=== PATIENT | female | born 1935 | race American Indian/Alaskan Native ===

== ENCOUNTER 2018-07-07 11:13 | Emergency (ER) | payer MEDICARE, MEDICAID ==
[2018-07-07 11:38] VITALS: BP 154/60; RESP 16; TEMP 97.6
[2018-07-07] MEDS ORDERED: Fluorescein 1 mg Ophthalmic Strip ONE (11:44)
--- NOTE | 2018-07-07 11:56 | C.PDOC ---
History Of Present Illness 82 year old female with PMHx of CAD, breast cancer, CKD on dialysis and HTN is brought to the ED by granddaughter for evaluation of left eye redness. Granddaughter reports she noted left eye was bloodshot when patient woke up this morning. Denies any trauma, rubbing, itching, tearing, eye pain, straining or any other recent illness. Reports redness was worse this morning in comparison to now in the ED. Denies history of glaucoma but reports history of cataracts. Denies fever, headache, nausea, vomiting, or chest pain. Chief Complaint (Nursing): Eye Problem History Per: Patient, Family History/Exam Limitations: no limitations Onset/Duration Of Symptoms: Hrs Current Symptoms Are (Timing): Still Present Past Medical History Reviewed: Historical Data, Nursing Documentation, Vital Signs Vital Signs: Last Vital Signs Temp 97.6 F 07/07/18 11:34 Pulse Resp 16 07/07/18 11:34 BP 154/60 H 07/07/18 11:34 Pulse Ox - Medical History PMH: Arthritis, Diabetes (diet controlled), HTN, Hypercholesterolemia Denies: Chronic Kidney Disease Surgical History: No Surg Hx - [facility] Procedures CORONAR ARTERIOGR-2 CATH (09/12/02) LEFT HEART CARDIAC CATH (09/12/02) LT HEART ANGIOCARDIOGRAM (09/12/02) Family History: States: No Known Family Hx - Social History Hx Tobacco Use: No Hx Alcohol Use: No Hx Substance Use: No - Immunization History Hx Tetanus Toxoid Vaccination: No Hx Influenza Vaccination: No Hx Pneumococcal Vaccination: No Review Of Systems Constitutional: Negative for: Fever, Chills Eyes: Positive for: Redness (left eye ). Negative for: Pain, Vision Change Respiratory: Negative for: Shortness of Breath Gastrointestinal: Negative for: Nausea, Vomiting Neurological: Negative for: Headache Physical Exam - Physical Exam Appears: Non-toxic, No Acute Distress Skin: Warm, Dry, No Rash Head: Normacephalic Eye(s): bilateral: PERRL, EOMI, left: Other (subconjunctival hemorrhage with 3 o'clock to 11 o'clock with chemosis from 7o'clock to 11 o'clock) Ear(s): Bilateral: Normal Oral Mucosa: Moist Neck: Supple Chest: Symmetrical Cardiovascular: Rhythm Regular Respiratory: No Rales, No Rhonchi, No Wheezing Gastrointestinal/Abdominal: Soft, No Tenderness Extremity: Tenderness Neurological/Psych: Oriented x3, Normal Speech Gait: Steady Medical Decision Making Medical Decision Making: IOP: right eye 14, left eye 19 Visual acuity without correction and counting fingers at 2 feet on right eye, 20/100 on left eye. Patient was noted to have dry eyes after Fluoroscein was placed Artificial tears twice a day Follow up with Ophtho tomorrow for further assessment particularly the chemosis Patient verbalizes understanding and is in agreement with plan. Patient is stable for discharge. Disposition Counseled Patient/Family Regarding: Diagnosis, Need For Followup, Rx Given - Disposition Referrals: Toney Rose MD [Staff Provider] - Disposition: HOME/ ROUTINE Disposition Time: 12:02 Condition: STABLE Additional Instructions: Follow up with Ophthalmology tomorrow for further evaluation of left eye Eye pressure today was 14 in The right eye and 19 in the left eye Vision in the right eye was counting fingers at 2ft and 20/100 in the left eye without correction (forgot glasses at home) Dry eyes were noted on exam and Artificial tears can be used twice a day Return to ED if symptoms worsen Prescriptions: Propylene Glycol/Peg 400 [Systane 0.3-0.4% Eye Drops] 1 drop OU BID #1 bottle Instructions: Dry Eye, Subconjunctival Hemorrhage Forms: [facility] ([place]) - Clinical Impression Clinical Impression: Subconjunctival hemorrhage of left eye, Dry eyes, bilateral
[2018-07-07 11:59] VITALS: PULSE 61; O2SAT 98
== END 2018-07-07 12:11 | disposition home or self-care (01) ==
LOC: C.ER 11:13
DX: H11.32 Conjunctival hemorrhage, left eye (principal); H04.123 Dry eye syndrome of bilateral lacrimal glands